=== PATIENT | male | born 1980 | race Caucasian/White ===

== ENCOUNTER 2023-12-16 06:26 | Day surgery (SDC) | payer BC ==
[2023-12-16] MEDS: Lactated Ringers 1,000 ML IV SCH (06:43)
[2023-12-16] MEDS ORDERED: Xylocaine-Mpf 2% 5 Ml Vial ONE (07:54)
[2023-12-16] MEDS ORDERED: DIPRIVAN 200 MG/20 ML IV ONE ×2 (07:54→08:15)
[2023-12-16] MEDS ORDERED: Versed 2 MG/2 ML Injection ONE (07:56)
[2023-12-16 08:58] VITALS: TEMP 96.9
[2023-12-16 09:09] VITALS: BP 117/82; PULSE 51; RESP 18; O2SAT 98
--- NOTE | 2023-12-16 14:40 | OP ---
SURGERY DATE/TIME: 12/16/2023 0800 PREOPERATIVE DIAGNOSIS: Screening exam. POSTOPERATIVE DIAGNOSIS: Small polyp in the ascending colon otherwise normal exam. PROCEDURE: Colonoscopy with cold forceps biopsy. SURGEON: Dr. Wheeler. ANESTHESIA: Medications given by anesthesia department. HISTORY: The patient is a 43-year-old white male patient presenting now for screening colonoscopy. He was appraised of the risks of the procedure including the risk of perforation, phlebitis, untoward reaction to medication, bleeding and missed lesions. The patient verbalized his understanding and desired to have the procedure performed. DESCRIPTION OF PROCEDURE: The patient was given the medications by the anesthesia department. He had continuous pulse oximetry, ECG monitoring and intermittent blood pressure monitoring during the examination. He was placed in the left lateral decubitus position. A digital rectal examination was performed and revealed normal anal sphincter tone, no masses and a normal prostate. The flexible Olympus pediatric colonoscope was used to intubate the rectum. A view of the colon was developed sequentially to the cecum. Upon insertion and withdrawal, including a retroflex view in the rectum was noted one small polyp in the ascending colon that was approximately 0.2 cm in size this was biopsied and destroyed using pass of cold forceps biopsy instrument. No other mucosal lesions were encountered. The scope was removed from the patient who tolerated the procedure well and was sent back to OP recovery in good condition.
== END 2023-12-16 09:20 | disposition home or self-care (01) ==
LOC: SDC 06:26
PROVIDERS: ATTEND Family Medicine
DX: Z12.11 Encounter for screening for malignant neoplasm of colon (principal); D12.2 Benign neoplasm of ascending colon
CPT/HCPCS: J2250; J2704

== ENCOUNTER 2024-10-06 15:57 | Emergency (ER) | payer BC ==
[2024-10-06 17:10] VITALS: BP 133/92; PULSE 61; RESP 20; TEMP 98; O2SAT 98
--- NOTE | 2024-10-06 17:39 | ERPHSYRPT ---
- History of Present Illness Time Seen by Provider: 10/06/24 17:35 Source: patient Exam Limitations: no limitations Patient Subjective Stated Complaint: Hand injury-left hand Triage Nursing Assessment: Patient ambulated back to ED and transferred self to bed. Patient A+O X 3. Patient's skin pink, warm and dry. Patient complains of left hand 4th and 5th digit pain 3/10 with swelling noted. Patient was using a log splitter when his left hand 4th and 5th digit was smashed between the metal and a piece of wood. Left hand 4th and 5th digit noted to be swollen. Physician History: 44-year-old male presents to emergency department for evaluation of pain to his left fourth and fifth digit. Patient states he was using a log splitter when he "smashed "his finger between the metal portion of the log splitter and wood. In jury occurred just prior to arrival. Pain described as an ache that is localized to the left fourth and fifth digit. No other injuries reported. Pain is localized. Pain worse with movement and palpation. Pain improved with rest. Patient otherwise feels well. He has not taken pain medication as of yet. Patient voices no other complaints or concerns at this time. Portions of this note were created with voice recognition technology. There may be grammatical, spelling, punctuation or sound alike errors Timing/Duration: today Severity: moderate Modifying Factors: Improves With: nothing Associated Symptoms: denies symptoms Allergies/Adverse Reactions: No Known Drug Allergies Allergy (Verified 10/06/24 17:01) Home Medications: No Reportable Medications [No Reported Medications] 12/04/23 [History] Hx Influenza Vaccination/Date Given: No Hx Pneumococcal Vaccination/Date Given: No Immunizations Up to Date: Yes Travel Risk - International Travel Have you traveled outside of the country in past 3 weeks: No - Emerging Infectious Disease Are you exhibiting symptoms associated with any current EIDs: No - Review of Systems Constitutional: No Symptoms, No Fever, No Chills Eyes: No Symptoms Ears, Nose, & Throat: No Symptoms Respiratory: No Symptoms, No Cough, No Dyspnea Cardiac: No Symptoms, No Chest Pain, No Edema, No Syncope Abdominal/Gastrointestinal: No Symptoms, No Abdominal Pain, No Nausea, No Vomiting, No Diarrhea Genitourinary Symptoms: No Symptoms, No Dysuria Musculoskeletal: No Symptoms, No Back Pain, No Neck Pain Skin: No Symptoms, No Rash Neurological: No Symptoms, No Dizziness, No Focal Weakness, No Sensory Changes Psychological: No Symptoms Endocrine: No Symptoms Hematologic/Lymphatic: No Symptoms Immunological/Allergic: No Symptoms All Other Systems: Reviewed and Negative - Past Medical History Pertinent Past Medical History: No - Past Surgical History Past Surgical History: Yes Neuro Surgical History: No Pertinent History Cardiac: No Pertinent History Respiratory: No Pertinent History Gastrointestinal: Cholecystectomy Genitourinary: No Pertinent History Musculoskeletal: No Pertinent History Male Surgical History: No Pertinent History - Social History Smoking Status: Never smoker Exposure to second hand smoke: No Drug Use: none - Social Determinants of Health Will the patient participate in the screening: Yes Do you worry about a steady place to live?: No Do you have any problems with any of the following?: No known problems In the past 12 months,have you had to go without utilities?: No Transportation Issues: No Has anyone in your support network made you feel unsafe?: No Have you or anyone in your house had to go without enough: No - Nursing Vital Signs Nursing Vital Signs: Initial Vital Signs Temperature 98.0 F 10/06/24 17:02 Pulse Rate 61 10/06/24 17:02 Respiratory Rate 20 10/06/24 17:02 Blood Pressure 133/92 10/06/24 17:02 O2 Sat by Pulse Oximetry 98 10/06/24 17:02 Pain Scale Pain Intensity 3 - Physical Exam General Appearance: no apparent distress, alert Eye Exam: PERRL/EOMI, eyes nml inspection Ears, Nose, Throat Exam: normal ENT inspection, moist mucous membranes Neck Exam: normal inspection, full range of motion Respiratory Exam: normal breath sounds, airway intact, No respiratory distress Cardiovascular Exam: regular rate/rhythm, normal peripheral pulses Gastrointestinal/Abdomen Exam: soft, normal bowel sounds, No tenderness, No mass Back Exam: normal inspection, normal range of motion, No CVA tenderness, No vertebral tenderness Extremity Exam: normal inspection, normal range of motion, pelvis stable, other (Left third and fourth digit show a soft tissue deformity. The overlying tissue is intact. No open or draining lesions. The involved digits neurovascular intact distally compartments are soft cap refill less than 2 seconds.) Neurologic Exam: alert, oriented x 3, cooperative, normal mood/affect, sensation nml, No motor deficits Skin Exam: normal color, warm, dry, No rash Lymphatic Exam: No adenopathy SpO2 Interpretation: normal SpO2: 98 O2 Delivery: Room Air - Course Nursing assessment & vital signs reviewed: Yes Ordered Tests: Active Orders 24 hr Category Date Time Status HAND (MINIMUM 3 VIEWS) Stat Exams 10/06/24 16:59 Taken Medication Summary Discontinued Medications Generic Name Dose Route Start Last Admin Trade Name Edouard PRN Reason Stop Dose Admin Ibuprofen 600 mg 10/06/24 17:34 10/06/24 17:51 Ibuprofen 600 Mg Tablet PO 10/06/24 17:35 600 mg STAT ONE Administration Ibuprofen Confirm 10/06/24 17:50 Ibuprofen 600 Mg Tablet Administered 10/06/24 17:51 Dose 600 mg .ROUTE .[employer] ONE - Progress Progress: improved Progress Note: 44-year-old male presents to emergency department for evaluation of crush injury to his left fourth and fifth digit sustained while using a log splitter. Injury occurred just prior to arrival. Physical exam shows soft tissue deformity of the left fourth and fifth digit however the involved digits are neurovascular tact distally compartments are soft cap refill less than 2 seconds. No open or draining lesions. X-ray negative for fracture dislocation. Patient received ibuprofen for pain control. No indication for further workup will discharge home. Patient agrees to follow-up with his primary care doctor within 48 hours for reevaluation. Patient voices no other complaints or concerns at this time. Portions of this note were created with voice recognition technology. There may be grammatical, spelling, punctuation or sound alike errors Complexity of problem addressed is moderate acute complicated. No critical care time. Complexity of data reviewed and analyzed is moderate. Test ordered chest reviewed results analyzed and correlated clinically with history and physical exam. Risk of complication and or risk of morbidity/mortality of patient management is low. Vital stable. Time spent to discharge patient is approximately 20 minutes. Plan of care established for shared decision making. No social determinants of health present to impede follow-up. Portions of this note were created with voice recognition technology. There may be grammatical, spelling, punctuation or sound alike errors 10/06/24 17:44 Counseled pt/family regarding: diagnosis, need for follow-up, rad results - Departure Departure Disposition: Home Clinical Impression: Finger contusion Condition: Stable Critical Care Time: No Referrals: CHIVO CUNNINGHAM MD [Primary Care Provider] - Follow up/PCP as directed Additional Instructions: Discharge/Care Plan SULMA BROUSSARD JR was seen on 10/06/24 in the Emergency Room. The patient was counseled regarding Diagnosis,Lab results, Imaging studies, need for follow up and when to return to the Emergency Room. Prescriptions given: Discharge Note I have spoken with the patient and/or caregivers. I have explained the patient's condition, diagnosis and treatment plan based on the information available to me at this time. I have answered the patient's and/or caregiver's questions and addressed any concerns. The patient and/or caregivers have as good understanding of the patient's diagnosis, condition and treatment plan as can be expected at this point. The vital signs have been stable. The patient's condition is stable and appropriate for discharge from the emergency department. The patient will pursue further outpatient evaluation with the primary care physician or other designated or consulting physician as outlined in the discharge instructions. The patient and/or caregivers are agreeable to this plan of care and follow-up instructions have been explained in detail. The patient and/or caregivers have received these instruction. The patient/and or caregivers are aware that any significant change in condition or worsening of symptoms should prompt an immediate return to this or the closest emergency department or call 911.
[2024-10-06] MEDS ORDERED: MOTRIN 600 MG ONE (17:50)
[2024-10-06] MEDS: MOTRIN 600 MG PO ONE (17:51)
--- NOTE | 2024-10-07 08:29 | XRAY ---
Indication: Pain following crush injury. Comparison: None 3 view left hand demonstrates mild 1st metacarpal multangular scaphoid degenerative changes. No other bony, articular, or soft tissue abnormalities.
== END 2024-10-06 18:26 | disposition home or self-care (01) ==
LOC: ED 15:57
DX: S67.22XA Crushing injury of left hand, initial encounter (principal); S60.042A Contusion of left ring finger without damage to nail, initial encounter; S60.052A Contusion of left little finger without damage to nail, initial encounter
CPT/HCPCS: 73130; 99282; A9270-GY